=== PATIENT | male | born 1935 | race Caucasian/White ===

== ENCOUNTER 2019-01-08 14:49 | Outpatient (CLI) | END 2019-01-08 15:09 | disposition short-term general hospital (02) | LOC: AMBL 14:49 | PROVIDERS: ATTEND Emergency Medicine | DX: R79.9 Abnormal finding of blood chemistry, unspecified (principal); C34.90 Malignant neoplasm of unspecified part of unspecified bronchus or lung; R09.89 Other specified symptoms and signs involving the circulatory and respiratory systems; Z99.81 Dependence on supplemental oxygen ==